=== PATIENT | male | born 2000 | race Caucasian/White ===

== ENCOUNTER 2021-01-24 19:17 | Emergency (ER) | payer MEDICAID, SELFPAY ==
--- NOTE | 2021-01-24 19:30 | NUR.NOTE ---
Pt arrives via [place] [employer] under arrest. Per police pt was in back of car and was striking head against window. Pt reported KRAUS to police. Brought to ED for eval. On arrival, pt refused to get out of car to be seen. Dr Prakash out to speak to pt, pt A&Ox3, declined evaluation. aware he is leaving AMA. encouraged to return for eval at any time.
--- NOTE | 2021-01-24 19:35 | NUR.NOTE ---
this RN did not assess pt, present for conversation between pt and MD Prakash. Noted to be A&Ox3, answering questions appropriately with clear speech.
--- NOTE | 2021-01-24 23:42 | W.ED.GENAD ---
Discharge Plan Disposition Patient Disposition: HOME Discharge Details Clinical Impression: Head injury Primary Care Provider: None,None ED Provider: Provider,Temporary Discharge Instructions Instructions: Against Medical Advice (ED) Additional Instructions: You presented with law enforcement to the emergency department. You are refusing emergency department evaluation and treatment. You understand that you may have life-threatening or lifestyle modifying disease that would go undiagnosed and untreated and that your condition may worsen. Please return to the emergency department at any time for further work-up and treatment. Please follow-up with your primary care physician as soon as possible and return to the emergency department at any time. Discharge Data Discharge Date/Time-TO BE ENTERED AT DEPARTURE: 01/24/21 19:30 Medical Decision Making 20-year-old male in law enforcement custody, here at request of law enforcement for complaint of headache after hitting his head against wall patrol car. Patient refusing to enter the emergency department and refusing ED evaluation and treatment. Patient is alert and oriented and has decisional making capacity. I had a discussion with the patient about emergency department evaluation. Patient declines ED and wishes to leave against medical advise without further examination. I reiterated my concerns to the patient and explained the risks of leaving prior to completion of workup and treatment. I specifically emphasized the possibility of life-threatening or lifestyle modifying disease that would not be appropriately treated if they leave. Patient verbalized understanding of my concerns and the potential for life threatening or lifestyle modifying disease. Patient has capacity to make informed decision. I recommended that the patient follow-up with primary care physician GUERLINE or return to the Emergency Department at any time for further treatment. HPI General Date/Time Provider Initiated Documentation: 01/24/21 19:18. Information obtained by: patient and police. HPI Narrative: 20-year-old male arrives in law enforcement custody. [employer] senior officer notes patient was banging his head and back of patrol car in route to care home. Patient reported to criminal lawyer that he had a headache. While enforcement diverted to ED for evaluation. Patient refusing evaluation. General Stated Complaint: Headache LOI: 4 Review of Systems Narrative: Patient denies pain and refuses to provide additional review of PFSH Social History Smoking risk assessment performed?: No Exam Const General: comfortable and no acute distress Orientation: alert, awake and oriented x3 HENMT Head: no raccoon eyes and No periorbital ecchymosis Eyes Pupils: other (Pupils equal and round) Resp Effort & Inspection: normal respiratory effort and able to speak in complete sentences Neuro General: patient alert, patient awake and patient oriented x3 Cognition: normal cognition Speech: speech normal
== END 2021-01-24 19:30 | disposition home or self-care (01) ==
DX: S09.8XXA Other specified injuries of head, initial encounter (principal); W22.8XXA Striking against or struck by other objects, initial encounter; Z53.29 Procedure and treatment not carried out because of patient's decision for other reasons
CPT/HCPCS: 99285; 99283

== ENCOUNTER 2024-09-08 16:00 | Emergency (ER) | payer MEDICAID, SELFPAY ==
[2024-09-08 16:04] VITALS: BP 103/51; PULSE 107; RESP 20; TEMP 36.7; O2SAT 99
--- NOTE | 2024-09-08 16:09 | ED.GENADUL_ITS ---
Discharge Plan Disposition Patient Disposition: Against Medical Advice Condition: Stable Discharge Details Clinical Impression: Observed seizure-like activity Primary Care Provider: None,None ED Provider: Angeles Benjamin Discharge Instructions Instructions: Seizures, Head Injury Observation (DC) Additional Instructions: At this time you have refused workup including blood work head CT and rib x- rays. This will be AGAINST MEDICAL ADVICE discharge. Please understand that your situation could become worse open to including disability, worsening injury or . Able to help you further or if you do not cooperate with the workup. Please follow-up with the medical providers at the facility. Follow up with primary care provider in 3-5 days. Referrals: Primary Care Provider [Outside] - 5 days Discharge Data Discharge Date/Time-TO BE ENTERED AT DEPARTURE: 09/08/24 16:54 HPI General Mode of arrival: EMS . Date/Time Provider Initiated Documentation: 09/08/24 16:06 . Information obtained by: patient, police, EMS and RN notes reviewed . HPI Na rrative: 23-year-old male presents via EMS with a chief complaint of seizure-like activity and head injury. Per police report and EMS on scene patient hit his head began having seizure-like activity and became unresponsive spitting stuff up in his lungs. Upon arrival he is nonverbal, he reports he does have a past medical history of seizure that are stress-induced. He does not currently take any medications for seizures. There is no signs of trauma noted on his head. He is complaining of some right rib pain. He presents in police custody at this time. Denies smoking drugs or alcohol. Patient is nonverbal and refusing to verbally answer my questions Does however nod his head and shake his head no. Related Data Allergies Allergy/AdvReac Type Severity Reaction Status Date / Time No Known Allergies Allergy Unverified 09/08/24 16:26 General Stated Complaint: Seizure LOI: 3 Review of Systems Narrative: History limited most history supplied by EMS. Patient is refusing to take his clothes off and is being nonverbal. Exam Narrative Exam Narrative: Constitutional: Alert and oriented x3. Appears stated age. Normal body habitus. Head: Normocephalic, no trauma. Eyes: Pupils PERRL, Red reflex noted, EOM's intact. Eyelids symmetrical without lesions, discharge, or swelling. ENT: Bilateral TM's WNL, External ear normal to inspection, no mastoid TTP, swelling, or erythema, Nasal turbinates WNL, no nasal discharge. Normal dentition, Posterior pharynx WNL, no exudate. Chest: RRR, Normal S1, S2, distal pulses intact. Resp: Lungs clear to auscultation bilaterally, no wheezes, rales, or rhonchi. Abdomen: Soft, non-distended, Normoactive bowel sounds all 4 quads. Musculoskeletal: Normal gait, Moves all 4 extremities without difficulty. Skin: No suspicious rashes or lesions. Capillary refill less than 2 sec. Neurologic: Cranial nerves II-XII intact. Alert and oriented x 3. Motor: No deficits noted. Sensory: Intact bilaterally all 4 extremities. Hematologic/Lymphatic: No ecchymosis, no lymphadenopathy. Course Vital Signs Vital signs: Vital Signs Temperature 36.7 C 09/08/24 16:04 Pulse 107 H 09/08/24 16:04 Respiratory Rate 20 09/08/24 16:04 Blood Pressure 103/51 L 09/08/24 16:04 Pulse Oximetry 99 09/08/24 16:04 Temperature 36.7 C 09/08/24 16:04 Temperature Source Oral 09/08/24 16:04 Pulse 107 H 09/08/24 16:04 Respiratory Rate 20 09/08/24 16:04 Blood Pressure 103/51 L 09/08/24 16:04 Blood Pressure Position Supine 09/08/24 16:04 Pulse Oximetry 99 09/08/24 16:04 Oxygen Delivery Method Room Air 09/08/24 16:04 Oxygen Flow Rate 0 09/08/24 16:04 Medical Decision Making 23-year-old male presents via EMS with a chief complaint of seizure-like activity and head injury. Per police report and EMS on scene patient hit his head began having seizure-like activity and became unresponsive spitting stuff up in his lungs. Upon arrival he is nonverbal, he reports he does have a past medical history of seizure that are stress-induced. He does not currently take any medications for seizures. There is no signs of trauma noted on his head. He is complaining of some right rib pain. Workup ordered including CBC CMP UDS urinalysis rib series x-ray and head CT. Informed by residential treatment staff that patient is refusing workup at this time, while correctional officers are in the room. Will re-discuss with patient. 1629: On patient reevaluation he is speaking to me now he is refusing any lab work or imaging wall facial fractures or abnormal. Officers state that this is their policy that they do need to stay in the room. He is speaking in full sentences does not appear to be under the influence at this time. No signs of trauma. As I am leaving he states you'll see me again in an hour. Will sign patient out AGAINST MEDICAL ADVICE. Patient left in the custody of correctional officers. This text was generated using [employer] dictation system, please disregard any oddities of phrase or misspellings. Quality:SDOH Health Related Social Needs: No Data to Display PFSH All Active Problems (Updated 09/08/24 @ 16:33 by Angeles Benjamin NP) Observed seizure-like activity (Acute) Head injury (Acute) Social History Smoking/Tobacco Use Status: Never Smoking risk assessment performed?: Yes Alcohol Intake: never Drug use: Never Details: pt denies any tobacco, alcohol, or drug use
== END 2024-09-08 16:54 | disposition left against medical advice (07) ==
LOC: ER 16:56
PROVIDERS: Emergency Provider Registered Nurse Emergency
DX: R56.9 Unspecified convulsions (principal); Z53.29 Procedure and treatment not carried out because of patient's decision for other reasons
CPT/HCPCS: 80053; 99285; 80320; 83735; 84443; 85025; 99284

== ENCOUNTER 2024-09-24 14:55 | Emergency (ER) | payer OTHER, SELFPAY ==
[2024-09-24] VITALS (13 sets, daily range): BP systolic 91–104; BP diastolic 51–64; PULSE 82–133; RESP 11–29; TEMP 36.4–36.6; O2SAT 88–100
[2024-09-24 15:20] LABS: Abs Immature Grans 0.15 10^3/uL (0.0-0.06); Absolute Basophil Count 0.03 10^3/uL (0.0-0.2); Absolute Eosinophil Count 0.25 10^3/uL (0.0-0.7); Absolute Lymphocyte Count 1.33 10^3/uL (1.2-3.4); Absolute Monocyte Count 0.41 10^3/uL (0.1-0.8); Absolute Neutrophil Count 4.69 10^3/uL (1.2-6.7); Basophils % 0.4 %; Eosinophils % 3.6 %; HCT 39.1 % (40.0-50.0); HGB 13.5 g/dL (13.5-17.5); Immature Grans % 2.2 %; Lymphocytes % 19.4 %; MCH 30.4 pg (27.0-33.0); MCHC 34.5 % (32.0-36.0); MCV 88 fL (80-95); MPV 9.2 fL (8.0-11.0); Neutrophils % 68.4 %; Platelet Count 289 10^3/uL (130-400); RBC 4.44 10^6/uL (4.36-5.78); RDW 12.4 % (11.8-14.1); RDW-SD 40.3 fL; WBC 6.86 10^3/uL (4.4-10.8)
[2024-09-24 15:43] LABS: ALT 22 U/L (16-63); AST 22 U/L (15-37); Albumin 4.1 g/dL (3.4-5.0); Alkaline Phosphatase 53 U/L (46-116); Anion Gap 9.1 mmol/L (3-11); BUN 15 mg/dL (7-18); Bilirubin, Total 0.44 mg/dL (0.2-1.0); CO2 27.9 mmol/L (21.0-32.0); Calcium 8.9 mg/dL (8.5-10.1); Chloride 105 mmol/L (98-107); Estimated GFR 108.46 (mL/min/1.73m2); Glucose 125 mg/dL (74-106); Potassium 4.1 mmol/L (3.5-5.1); Sodium 142 mmol/L (136-145); Total Protein 7.7 g/dL (6.4-8.2)
--- NOTE | 2024-09-24 16:00 | DI.CT_ITS ---
Exam(s) CT HEAD WO EXAM: CT HEAD WO CLINICAL HISTORY: seizure. TECHNIQUE: Imaging Protocol: Axial computed tomography images with coronal and sagittal reformatted images were created and reviewed COMPARISON: No exams were available for comparison FINDINGS: Head is tilted towards the right. There are no obvious acute skull fractures and there is no fluid i n the paranasal sinuses and mastoid air cells. No fluid in the middle ear cavities. There is no evidence of intracranial hemorrhage, mass effect, or shift of midline structures. There are no extra-axial fluid collections. The ventricles are not enlarged or shifted and there is no blo od within the ventricular system nor within the basal cisterns. No obvious abnormality in the orbits. IMPRESSION: No acute intracranial findings on this noninfused CT scan of the brain. Report called by myself to ER on 09/24/2024 at 4:25 p.m. RADIATION DOSE DELIVERED: 1,024.65mGy.cm Total DLP DATA REPOSITORY: All CT scans at this facility are submitted to the National Radiology Data Registry (NRDR) Dose Index Registry (DIR) with the [employer] (ACR). RADIATION OPTIMIZATION: All CT scans at this facility use at least one of these dose optimization te chniques: automated exposure control; mA and/or kV adjustment per patient size (includes targeted exa ms where dose is matched to clinical indication); or iterative reconstruction.
[2024-09-24] MEDS: Ondansetron 4 MG/2 ML VIAL (16:17)
--- NOTE | 2024-09-24 16:45 | ED.GENADUL_ITS ---
Discharge Plan Disposition Patient Disposition: Home Condition: Stable Discharge Details Clinical Impression: Seizure Primary Care Provider: None,None ED Provider: Khalif Prakash Home Meds and New Rx's Prescriptions: New levetiracetam [Keppra] 500 mg tablet 500 mg PO BID Qty: 60 0RF Discharge Instructions Instructions: Seizures, Adult ED Additional Instructions: Please take your medication as prescribed. No driving or operating heavy machinery until cleared by neurology. Please follow-up with a neurologist for reassessment. Call tomorrow to schedule timely follow-up appointment to be seen within the next 1 to 2 weeks. Please contact your primary care physician to arrange follow-up. Return to the ER immediately for any worsening or new concerning symptoms. Referrals: [facility] [Provider Group] HPI General Mode of arrival: EMS . Date/Time Provider Initiated Documentation: 09/24/24 15:10 . Limitations to Documentation: no limitations . Information obtained by: patient and EMS . HPI Narrative: 23-year-old male with history of seizure disorder, transported from nursing home after witnessed generalized tonic-clonic seizure. Patient had seizure activity for brief period of time lasting a few minutes. He had minima postictal confusion. Patient denies pain. Patient states he has had numerous seizures in his life. He has not taken antiepileptic regularly for over a year. He has been refusing medications and present. Patient did receive Ativan by present staff IV prior to arrival. Related Data Home Medications ?Medication ?Instructions ?Recorded ?Confirmed levetiracetam 500 mg tablet 500 mg PO BID #60 tabs 09/24/24 (Keppra) Previous Rx's ?Medication ?Instructions ?Recorded levetiracetam 500 mg tablet 500 mg PO BID #60 tabs 09/24/24 (Keppra) Allergies Allergy/AdvReac Type Severity Reaction Status Date / Time No Known Allergies Allergy Unverified 09/08/24 16:26 General Stated Complaint: Seizure LOI: 3 Review of Systems Constitutional Constitutional: Denies fever(s) and Denies headache(s) ENT Ears, Nose, Mouth, and Throat: Denies headache(s) Neurologic Neurologic: Reports as per HPI and Denies headache(s) Exam Const General: cooperative and no acute distress HENMT Head: normocephalic and atraumatic Mouth: moist mucous membranes Eyes Conjunctivae: normal conjunctivae Sclera: normal sclerae EOM: EOM intact bilaterally Neck Neck: trachea midline Resp Auscultation: clear to auscultation bilaterally, no rales, no rhonchi and no wheezes Cardio Rate: regular rate and not tachycardic Rhythm: regular rhythm GI Palpation: soft, not firm, no guarding, no masses, not rigid and nontender Skin General skin exam: no rashes or lesions noted Neuro General: patient alert, patient awake, patient oriented x3 and tone normal Cognition: normal cognition Speech: speech normal Motor: strength 5/5 throughout Sensory Exam: no sensory deficits noted Other: Left lid droop the patient notes is chronic Extrem General: no edema Psych Appearance: grossly normal Speech and Movement: speech and movement normal Course Vital Signs Vital signs: Vital Signs Pulse 113 H 09/24/24 14:56 Respiratory Rate 16 09/24/24 14:56 Blood Pressure 104/64 09/24/24 14:56 Pulse Oximetry 98 09/24/24 14:56 Temperature 36.6 C 09/24/24 16:02 Temperature Source Temporal Artery Scan 09/24/24 16:02 Pulse 106 H 09/24/24 16:02 Pulse 93 H 09/24/24 16:20 Respiratory Rate 18 09/24/24 16:20 Respiratory Effort Normal, Non-Labored 09/24/24 16:20 Blood Pressure 103/57 L 09/24/24 15:46 Blood Pressure Mean 71 09/24/24 15:46 Pulse Oximetry 94 09/24/24 16:20 Oxygen Delivery Method Room Air 09/24/24 16:02 Oxygen Flow Rate 0 09/24/24 16:02 Pain Level 10 09/24/24 16:02 Lab/Test Results Lab/Test Results: Laboratory Tests Range/Units 09/24/24 15:07 WBC (4.4-10.8) 10^3/uL 6.86 RBC (4.36-5.78) 10^6/uL 4.44 Hgb (13.5-17.5) g/dL 13.5 Hct (40.0-50.0) % 39.1 L MCV (80-95) fL 88 MCH (27.0-33.0) pg 30.4 MCHC (32.0-36.0) % 34.5 RDW (11.8-14.1) % 12.4 Plt Count (130-400) 10^3/uL 289 MPV (8.0-11.0) fL 9.2 Immature Gran % % 2.2 Neutrophils % % 68.4 Lymphocytes % % 19.4 Monocytes % % 6.0 Eosinophils % % 3.6 Basophils % % 0.4 Nucleated RBC % (0.0-0.3) % 0.0 Absolute Neutrophils (1.2-6.7) 10^3/uL 4.69 Absolute Lymphocytes (1.2-3.4) 10^3/uL 1.33 Absolute Monocytes (0.1-0.8) 10^3/uL 0.41 Absolute Eosinophils (0.0-0.7) 10^3/uL 0.25 Absolute Basophils (0.0-0.2) 10^3/uL 0.03 Sodium (136-145) mmol/L 142 Potassium (3.5-5.1) mmol/L 4.1 Chloride (98-107) mmol/L 105 Carbon Dioxide (21.0-32.0) mmol/L 27.9 Anion Gap (3-11) mmol/L 9.1 BUN (7-18) mg/dL 15 Creatinine (0.70-1.30) mg/dL 1.0 Est GFR (CKD-EPI 2020) (mL/min/1.73m2) 108.46 Glucose (74-106) mg/dL 125 H Calcium (8.5-10.1) mg/dL 8.9 Total Bilirubin (0.2-1.0) mg/dL 0.44 AST (15-37) U/L 22 ALT (16-63) U/L 22 Alkaline Phosphatase (46-116) U/L 53 Total Protein (6.4-8.2) g/dL 7.7 Albumin (3.4-5.0) g/dL 4.1 Medical Decision Making 23-year-old male with known seizure disorder, noncompliant with antiepileptics, here after witnessed generalized tonic-clonic seizure. Patient received Ativan prior to arrival. Patient is hemodynamically stable. He is now mentating well with no neurologic deficits. Patient was given Keppra 1 g IV. Patient states he has never had brain imaging in the past. CT of the brain was reviewed and interpreted by radiology: No acute intracranial findings on this not infused CT scan of the brain. Labs reviewed and nondiagnostic. I obtained outside hospital records including most recent discharge summary [place] [facility] [place] [facility] which notes patient presenting with seizure-like activity, refused diagnostic workup at that time. Patient reassessed and has remained stable. I spoke with the medical staff at nursing home and they can ensure safety and compliance with antiepileptics. I will prescribe Keppra which they have available. Lab Data Lab results reviewed: Yes I reviewed the patient's lab results. Labs: Laboratory Tests Range/Units 09/24/24 15:07 WBC (4.4-10.8) 10^3/uL 6.86 RBC (4.36-5.78) 10^6/uL 4.44 Hgb (13.5-17.5) g/dL 13.5 Hct (40.0-50.0) % 39.1 L MCV (80-95) fL 88 MCH (27.0-33.0) pg 30.4 MCHC (32.0-36.0) % 34.5 RDW (11.8-14.1) % 12.4 Plt Count (130-400) 10^3/uL 289 MPV (8.0-11.0) fL 9.2 Immature Gran % % 2.2 Neutrophils % % 68.4 Lymphocytes % % 19.4 Monocytes % % 6.0 Eosinophils % % 3.6 Basophils % % 0.4 Nucleated RBC % (0.0-0.3) % 0.0 Absolute Neutrophils (1.2-6.7) 10^3/uL 4.69 Absolute Lymphocytes (1.2-3.4) 10^3/uL 1.33 Absolute Monocytes (0.1-0.8) 10^3/uL 0.41 Absolute Eosinophils (0.0-0.7) 10^3/uL 0.25 Absolute Basophils (0.0-0.2) 10^3/uL 0.03 Sodium (136-145) mmol/L 142 Potassium (3.5-5.1) mmol/L 4.1 Chloride (98-107) mmol/L 105 Carbon Dioxide (21.0-32.0) mmol/L 27.9 Anion Gap (3-11) mmol/L 9.1 BUN (7-18) mg/dL 15 Creatinine (0.70-1.30) mg/dL 1.0 Est GFR (CKD-EPI 2020) (mL/min/1.73m2) 108.46 Glucose (74-106) mg/dL 125 H Calcium (8.5-10.1) mg/dL 8.9 Total Bilirubin (0.2-1.0) mg/dL 0.44 AST (15-37) U/L 22 ALT (16-63) U/L 22 Alkaline Phosphatase (46-116) U/L 53 Total Protein (6.4-8.2) g/dL 7.7 Albumin (3.4-5.0) g/dL 4.1 Yeah Quality:[facility] Health Related Social Needs: No Data to Display PFSH All Active Problems Seizure (Acute) Observed seizure-like activity (Acute) Head injury (Acute) Social History Smoking/Tobacco Use Status: Never Smoking risk assessment performed?: Yes Alcohol Intake: never Drug use: Never Details: pt denies any tobacco, alcohol, or drug use Housing: other
--- OUTSIDE RECORDS SUMMARY | 2024-09-24 17:17 | XMS_ITS | Clinical Summary ---
Author Organization [facility] Address [address] [place] [address] Care Team Providers Care Diesel Service Apprentice Name Role Phone Unknown, Provider Primary Care Provider Unava ilable Allergies Active Allergy Reactions Criticality Noted Date Comments Latex 11/12/2018 Medications albuterol 90 mcg/actuation inhaler Inhale 180 mcg as directed every 6 hours as needed for Wheezing. Active Encounters Date Type Department Care Team Description 07/04/2024 20:59 EDT - 07/04/2024 22:30 EDT Emergency [facility] Emergency Department [address] [place] [address] Aristides Louie MD Seizure-like activity ([facility]) (Primary Dx) Discharge Disposition: Home or Self Care 07/04/2024 Travel from Last 3 Months Medical History Medical History Date Comments Psychiatric problem Social History Tobacco Use Types Packs/Day Years Used Date Smoking Tobacco: Every Day Cigarettes 5 10 Tobacco Cessation:Ready to Q uit: No Interpersonal Safety Answer Date Record ed Physically Hurt Never 05/08/2020 Verbally Threaten Not on file 05/08/2020 Sex and Gender Information Value Date Recorded Sex Assigned at Not on file Legal Sex Male 18:28 EST Gender Identity Not on file Sexual Orientation Not on file Obstetrics History Last Filed Vital Signs Vital Sign Reading Time Taken Comments Blood Pressure 114/76 07/04/20242109 EDT Pulse 73 07/04/20242109 EDT Temperature 36.8 ??C (98.2 ??F) 07/04/20242109 EDT Respiratory Rate 20 07/04/20242109 EDT Oxygen Saturation 98% 07/04/20242109 EDT Inhaled Oxygen Concentration - - Weight 61.2 kg (135 lb) 07/04/20242109 EDT Height 167.6 cm (5' 6) 02/25/20232217 EDT Body Mass Index 21.79 02/25/2023 221 EDT Plan of Treatment Health Maintenance Due Date Last Done Comments Hepatitis C Screen 2000 Pneumococcal Immunization (1 of 2 - PCV) 2006 Hepatitis B Vaccine (1 of 3 - 19+ 3-dose series) 12/21 COVID-19 Vaccine ( season) 2024 Procedures Procedure Name Priority Date/Time Associated Diagnosis Comments POCT GLUCOSE, INTERFACED STAT 07/04/2024 22:04 EDT from Last 3 Months Results * POCT GLUCOSE, INTERFACED (07/04/2024 22:04 EDT) Glucose, POC 93 70 - 100 mg/dL 07/04/2024 22:07 EDT [facility] HN LAB POC COMMENT (GLUCOSE) Test Performed in ED 07/04/2024 22:07 EDT [facility] Blood CAPILLARY BLOOD / Unknown 07/04/2024 22:04 EDT 07/04/2024 22:07 EDT Aristides Louie MD POINT OF CARE TEST ORDER YISSEL Final Result [facility] [address] [place] [address] from Last 3 Months Insurance [place] [address] Care Teams Diesel Service Apprentice Relationship Specialty Start Date End Date Unknown, Provider, PCP - General 01/18/17
--- OUTSIDE RECORDS SUMMARY | 2024-09-24 17:18 | XMS_ITS | Encounter Summary ---
Author Organization [facility] Address [address] [place] [address] Care Team Providers Care Warp Trucker Name Role Phone Unknown, Provider Primary Care Provider Unava ilable Encounter Details Date Type Department Care Team (Latest Contact Info) Description 03/17/2022 Travel Social History Tobacco Use Types Packs/Day Years Used Date Smoking Tobacco: Every Day Cigarettes 5 10 Interpersonal Safety Answer Date Record ed Physically Hurt Never 05/08/2020 Verbally Threaten Not on file 05/08/2020 Sex and Gender Information Value Date Recorded Sex Assigned at Not on file Legal Sex Male 18:28 EST Gender Identity Not on file Sexual Orientation Not on file COVID-19 Exposure Response Date Recorded In the last 10 days, have yo u been in contact with someone who was confirmed or suspected to have Coronavirus/COVID-19? No / Unsure 03/17/2022 20:31 EDT documented as of this encounter Plan of Treatment Not on file documented as of this encounter Visit Diagnoses Not on filedocumented in this encounter Care Teams Warp Trucker Relationship Specialty Start Date End Date Unknown, Provider, PCP - General 01/18/17 documented as of this encounter
--- OUTSIDE RECORDS SUMMARY | 2024-09-24 17:18 | XMS_ITS | Encounter Summary ---
Author Organization [facility] Address [address] [place] [address] Care Team Providers Care Medical Record Librarians Teacher Name Role Phone Stevie Avendano MD Primary Care Provider Unavailable Unknown, Provider Primary Care Provider Unava ilable Encounter Details Date Type Department Care Team (Late st Contact Info) Description 03/16/2015 Historical Results Only [facility] Radiology Results [address] [place] [address] Saadia Velasco MD Social History Tobacco Use Types Packs/Day Years Used Date Smoking Tobacco: Never Assessed Sex and Gender Information Value Date Recorded Sex Assigned at Not on file Legal Sex Male 18:28 EST Gender Identity Not on file Sexual Orientation Not on file documented as of this encounter Plan of Treatment Not on file documented as of this encounter Procedures Procedure Name Priority Date/Time Associated Diagnosis Comments XR HAND RIGHT 3 OR MORE VIEWS 03/16/2015 7:20 EDT documented in this encounter Results * XR HAND RIGHT 3 OR MORE VIEWS (03/16/2015 7:20 EDT) Anatomical Region Laterality Modality Upper Extremities Right Other 03/16/2015 7:20 EDT Narrative 03/16/2015 7:25 EDT ? EXAM: RADIOLOGY/QFOF-XDIHQ-3+VIEW ? EX. D/ (2225) ? CLINICAL INFORMATION: ? PAIN S/P PUNCHING WALL ? XR RIGHT HAND ? Comparison: None. ? Indication: Punched wall ? Findings:AP, oblique and lateral views of the right hand were ? performed. Alignment is anatomic. No fracture is seen. The soft ? tissues are unremarkable. ? Impression: ? 1. No fracture right hand. ? REPORT SIGNED IN OTHER VENDOR SYSTEM 03/16/2015 ?Reported By: Ritu Menjivar MD ? CC: ? Transcribed Date/Time: 03/16/2015 (724) ? Finance Attorney: ? Printed Date/Time: 03/16/2019 (0257) ? PAGE 1 ? Signed Report ? Procedure Note Unknown, Doctor - 10/20/2019 EXAM: RADIOLOGY/HJNX-UPJXR-3+VIEW EX. D/ (2225) CLINICAL INFORMATION: PAIN S/P PUNCHING WALL XR RIGHT HAND Comparison: None. Indication: Punched wall Findings:AP, oblique and lateral views of the right hand were performed. Alignment is anatomic. No fracture is seen. The soft tissues are unremarkable. Impression: 1. No fracture right hand. REPORT SIGNED IN OTHER VENDOR SYSTEM 03/16/2015 Reported By: Ritu Menjivar MD CC: Transcribed Date/Time: 03/16/2015 (724) Finance Attorney: Printed Date/Time: 03/16/2019 (0162) PAGE 1 Signed Report us Saadia Velasco MD IMG DIAGNOSTIC IMAGING ORD ERABLES Final Result documented in this encounter Visit Diagnoses Not on filedocumented in this encounter Care Teams Medical Record Librarians Teacher Relationship Specialty Start Date End Date Stevie Avendano MD PCP - General 03/21/15 01/17/17 Unknown, Provider, PCP - General 01/18/17 documented as of this encounter
--- OUTSIDE RECORDS SUMMARY | 2024-09-24 17:18 | XMS_ITS | Encounter Summary ---
Author Organization [facility] Address [address] [place] [address] Care Team Providers Care Senior Abap Developer Name Role Phone Stevie Avendano MD Primary Care Provider Unavailable Unknown, Provider Primary Care Provider Unava ilable Encounter Details Date Type Department Care Team (Late st Contact Info) Description 03/15/2015 Historical Results Only [facility] Radiology Results [address] [place] [address] Saadia Velasco MD Social History Tobacco Use [...] XR HAND RIGHT 3 OR MORE VIEWS 03/15/2015 22:01 EDT documented in this encounter Results * XR HAND RIGHT 3 OR MORE VIEWS (03/15/2015 22:01 EDT) Anatomical Region Laterality Modality Upper Extremities Right Other 03/15/2015 22:0 1 EDT Narrative 03/16/2015 7:20 EDT ? EXAM: RADIOLOGY/ETVZ-SQJZD-4+VIEW ? EX. D/ (2225) ? CLINICAL INFORMATION: [...] CC: ? Transcribed Date/Time: 03/16/2015 (724) ? Animal Damage Control Agent: ? Printed Date/Time: 03/16/2019 (2545) ? PAGE 1 ? Signed Report ? Procedure Note Unknown, Doctor - 10/20/2019 EXAM: RADIOLOGY/VMFI-UHNAU-6+VIEW EX. D/ (2225) CLINICAL INFORMATION: PAIN S/P PUNCHING WALL XR RIGHT HAND Comparison: None. Indication: Punched wall Findings:AP, oblique and lateral views of the right hand were performed. Alignment is anatomic. No fracture is seen. The soft tissues are unremarkable. Impression: 1. No fracture right hand. REPORT SIGNED IN OTHER VENDOR SYSTEM 03/16/2015 Reported By: Ritu Menjivar MD CC: Transcribed Date/Time: 03/16/2015 (724) Animal Damage Control Agent: Printed Date/Time: 03/16/2019 (2964) PAGE 1 Signed Report us Saadia Velasco MD IMG DIAGNOSTIC IMAGING ORD ERABLES Final Result documented in this encounter Visit Diagnoses Not on filedocumented in this encounter Care Teams Senior Abap Developer Relationship Specialty Start Date End Date Stevie Avendano MD PCP - General 03/21/15 01/17/17 Unknown, Provider, PCP - General 01/18/17 documented as of this encounter
--- OUTSIDE RECORDS SUMMARY | 2024-09-24 17:18 | XMS_ITS | Encounter Summary ---
Author Organization [facility] Address [address] [place] [address] Care Team Providers Care Favor Maker Name Role Phone Unavailable Primary Care Provider Unavailabl e Encounter Details Date Type Department Care Team (Late st Contact Info) Description 09/03/2006 Before PRISM Converted Visit ([facility]) [facility] - Maple conversion [address] [place] [address] Brandi Montes MD [address] [place] [address] Social History Tobacco Use Types Packs/Day Years Used Date Smoking Tobacco: Never Assessed Sex and Gender Information Value Date Recorded Sex Assigned at Not on file Legal Sex Male 18:28 EST Gender Identity Not on file Sexual Orientation Not on file documented as of this encounter Consult Notes * Brandi Montes MD - 10/10/2009 7386 EST CONSULTATION - 09/03/2006 [facility] Tripp Painagua is a 5- year- old who was seen at the request of his pulley man, Dr. Avendano, for followup related to his underlying possible genetic diagnoses. Tripp was last seen on January 03, 2005. INTERIM HISTORY: Currently Tripp is in kindergarten, and is wearing glasses. He has problems with hyperactivity and was tried on Focalin a month ago, but it makes him sick to his stomach, and the parents have not seen a change in him. They have been discussing other possible medications with their pulley man tocurb his hyperactivity. Of note is that his sister, Kristie, also has hyperactivity and is well- controlled on medications. She is on Metadate, and at the time of this clinic the parents have been unable to have Metadate covered by insurance for Tripp. He is still having trouble with toilet training, and wears a pull- up at night and many days at school. His 7- year- old sister also wears a pull- up at night. With respect to his physical developmental delay, he still has trouble walking up stairs but is otherwise doing fairly well. He has not been seen by Dr. Woodward for his ptosis since we saw him last, and he has not been to a dentist. He has had a dental exam at school, in which they noticed fused teeth. Mother reports that they did x- rays, and that his permanent teeth did not appear to be fused. PHYSICAL EXAMINATION: Weight 36 pounds, head circumference 50.5 cm. Tripp was not at all cooperative with the exam. Again, his unilateral left- sided ptosis was noted as well as his facial and cranial asymmetry. No other abnormalities were noted on our somewhat limited exam. He would not let us look into his mouth at all. SUMMARY: Tripp continues to be somewhat of a mystery as to the genetic reasons for the difficulties he ishaving. There is still a possibility that he has a form of [place], however his only finding for that at this point is his unilateral ptosis. Therefore, it is likely that this is an isolated incident. It appears that his learning problems and hyperactivityare not out of line for his family history. Atthis time, I do not have any further genetic testing to recommend, and I do not need to see him back for at least two years. I would like to see him back in followup at that point, just to see if there is any further developments that would warrant having any additional testing done. Signed by Brandi Montes MD 09/20/2006 05:36 [facility] [phone] W [place], MD Brandi Montes MD Division of Pediatric Genetics [phone] Yisel Montes MD A - O1 Job ID: [id number] Document ID: [id number] cc: Stevie Avendano MD documented in this encounter Plan of Treatment Not on file documented as of this encounter Visit Diagnoses Not on filedocumented in this encounter
--- OUTSIDE RECORDS SUMMARY | 2024-09-24 17:18 | XMS_ITS | Encounter Summary ---
Author Organization [facility] Address [address] [place] [address] Care Team Providers Care Direct Care Staffer Name Role Phone Unknown, Provider Primary Care Provider Unava ilable Encounter Details Date Type Department Care Team (Late st Contact Info) Description 10/10/[address] [facility] Radiology Results [address] [place] [address] Yoli Marshall MD [address] [place] [address] Social History Tobacco Use Types Packs/Day Years [...] Procedure Name Priority Date/Time Associated Diagnosis Comments DRUG SCREEN, PRESCRIPTION/OTC, URINE Routine 10/10/2018 19:40 EST URINE CHEMICAL (DIP) & SEDIMENT (MICRO) WITHOUT REFLEX TO CULTURE Routine 10/10/2018 19:40 EST COMPLETE BLOOD COUNT WITH DIFFERENTIAL (AUTO) Routine 10/10/2018 18:32 EST TROPONIN I Routine 10/10/2018 18:32 EST MAGNESIUM Routine 10/10/2018 18:32 EST COMPREHENSIVE METABOLIC PANEL (CMP) Routine 10/10/2018 18:32 EST XR CHEST 2 VIEWS 10/10/2018 18:0 9 EST documented in this encounter Results * UA, CHEMICAL AND SEDIMENT ANALYSIS (DIPSTICK AND MICROSCOPIC) (10/10/2018 19:40 EST) URINE APPEARANCE - [facility] Clear CLEAR 10/10/2018 19:48 [facility] URINE BILIRUBIN - DIPSTICK - [facility] Negative NEGATIVE 10/10/2018 19:48 [facility] URINE BLOOD - [facility] Negative NEG 10/10/2018 19:48 [facility] URINE COLOR - [facility] Yellow YELLOW 10/10/2018 19:48 [facility] URINE GLUCOSE - DIPSTICK - [facility] Negative NEGATIVE 10/10/2018 19:48 [facility] URINE KETONE - [facility] 2+ NEGATIVE 10/10/2018 19:48 [facility] URINE LEUK ESTERASE - [facility] Negative NEG 10/10/2018 19:48 [facility] URINE NITRITE - DIPSTICK - [facility] Negative NEG 10/10/2018 19:48 [facility] URINE PH - [facility] 6.0 4.0 - 8.0 9 19:48 [facility] URINE PROTEIN - DIPSTICK - [facility] Negative NEG 10/10/2018 19:48 [facility] URINE SPECIFIC GRAVITY - [facility] 1.015 1.001 - 1.035 10/10/2018 19:48 [facility] URINE UROBILINOGEN - DIPSTICK - [facility] 0.2 0.2 - 1.0 10/10/2018 19:48 [facility] 10/10/2018 19:4 0 EST 10/10/2018 19:44 EST us Yoli Marshall MD URINALYSIS ORDERABLES Final Res ult [facility] * DRUG SCREEN, PRESCRIPTION/OTC, URINE (10/10/2018 19:40 EST) AMPHETAMINES NEG NEG 10/10/2018 20:00 [facility] BARBITURATES,UR - [facility] NEG NEG 10/10/2018 20:00 [facility] BENZODIAZEPINES NEG NEG 9 20:00 [facility] COCAINE,URINE - [facility] NEG NEG 01/2019 20:00 [facility] MAMP (METHAMPHETAMINES - [facility] NEG NEG 10/10/2018 20:00 [facility] MARIJUANA,URINE - [facility] NEG NEG 10/10/2018 20:00 [facility] MTD (METHADONE) - [facility] NEG NEG 10/10/2018 20:00 [facility] OPIATES,URINE - [facility] NEG NEG 01/2019 20:00 [facility] OXY (OXYCODONE) - [facility] NEG NEG 10/10/2018 20:00 [facility] PCP (PHENCYCLIDINE) - [facility] NEG NEG 10/10/2018 20:00 [facility] PROPOXYPHENE (PPX) - [facility] NEG NEG 10/10/2018 20:00 [facility] TRICYCLIC ANTIDEPRESSANTS - [facility] NEG NEG 10/10/2018 20:00 [facility] Comment: Drug Class ?Cutoff Concentration Amphetamines (AMP) ?500 ng/ml Barbiturates (BAR) ?200 ng/ml Benzodiazepines (BZO) ? 150 ng/ml Cocaine (GENO) ? 150 ng/ml Methamphetamine (mAMP) ?500 ng/ml Methadone (MTD) ? 200 ng/ml Opiates (OPI) ? 100 ng/ml Oxycodone (OXY) ? 100 ng/ml Phencyclidine (PCP) ?25 ng/ml Tetrahydrocannabinol (THC) ? 50 ng/ml Propoxyphene (PPX) ?300 ng/ml Tricyclic antidepressants (TCA) ? 300 ng/ml This is a screening assay only, intended for use in clinical monitoring or management of patients. False positive or false negative results can occur. If confirmation testing is needed, please call the lab. Specimens are retained in the laboratory for 7 days. 10/10/2018 19:4 0 EST 10/10/2018 19:44 EST Yoli Marshall MD URINALYSIS ORDERABLES Final Res ult Performing Organization Address [facility]/ZIP Co de Phone Number [facility] * MAGNESIUM (10/10/2018 18:32 EST) Magnesium 1.90 1.5 - 2.3 mg/dL 10/10/2018 19:01 [facility] 10/10/2018 18:3 2 EST 10/10/2018 18:37 EST Yoli Marshall MD CHEMISTRY & BLOOD GAS ORDERABLE S Final Result Performing Organization Address [facility]/ZIP Co de Phone Number [facility] * (ABNORMAL) COMPREHENSIVE METABOLIC PANEL (CMP) (10/10/2018 18:32 EST) Albumin % 5.2 3.7 - 5.6 g/dL 10/10/2018 19:01 [facility] ALKALINE PHOSPHATASE - [facility] 72 58 - 237 U/L 10/10/2018 19:01 [facility] BILIRUBIN TOTAL 0.8 <1.0 mg/dL 9 19:01 [facility] BUN - [facility] 13 8 - 21 mg/dL 10/10/2018 19:01 [facility] CALCIUM - [facility] 10.6 8.9 - 10.7 mg/dL 10/10/2018 19:01 [facility] Chloride 102 96 - 110 mmol/L 10/10/2018 19:01 [facility] CO2 Total 23 21 - 32 mEq/L 10/10/2018 19:01 [facility] CREATININE 0.90 0.50 - 1.00 mg/dL 10/10/2018 19:01 [facility] Anion Gap 16 0 - 18 10/10/2018 19:01 [facility] GLUCOSE - [facility] 122(H) 70 - 100 mg/dL 10/10/2018 19:01 [facility] Potassium 4.2 3.5 - 5.0 mEq/L 10/10/2018 19:01 [facility] Sodium 141 136 - 145 mEq/L 10/10/2018 19:01 [facility] TOTAL PROTEIN - [facility] 8.6 6.3 - 8.6 gm/dL 10/10/2018 19:01 [facility] SGOT/AST - [facility] 37 15 - 45 U/L 10/10/2018 19:01 [facility] SGPT/ALT - [facility] 67(H) <41 U/L 9 19:01 [facility] 10/10/2018 18:3 2 EST 10/10/2018 18:37 EST us Yoli Marshall MD CHEMISTRY & BLOOD GAS ORDERABLE S Final Result [facility] * TROPONIN I (10/10/2018 18:32 EST) Troponin I (ng/mL) <0.012 0.000 - 0.034 ng/mL 10/10/2018 19:06 [facility] Comment: Interpretation comments: ??Cutoff for a positive troponin result is set at the 99th percentile of the upper reference limit. ??Elevated troponin must always be interpreted in the context of the clinical presentation. ?Serial troponin testing 3-6 hr from baseline is favored over relying on a single troponin level. ?? The results of this assay can be falsely lowered due to the consumption of Biotin. 10/10/2018 18:3 2 EST 10/10/2018 18:37 EST us Yoli Marshall MD CHEMISTRY & BLOOD GAS ORDERABLE S Final Result [facility] * (ABNORMAL) COMPLETE BLOOD COUNT WITH DIFFERENTIAL (AUTO) (10/10/2018 18:32 EST) ABSOLUTE NEUTROPHIL COUN - [facility] 11.09(H) 1.7 - 7.0 10e3/ul 10/10/2018 18:47 [facility] BASO # - [facility] 0.02 0.0 - 0.3 10e3/uL 10/10/2018 18:47 [facility] BASO % - [facility] 0 0 - 2 % 10/10/2018 18:47 [facility] EOS # - [facility] 0.04(L) 0.05 - 0.5 10e3/uL 10/10/2018 18:47 [facility] EOS % - [facility] 0 0 - 5 % 10/10/2018 18:47 [facility] GRAN % - [facility] 86(H) 40 - 80 % 10/10/2018 18:47 [facility] HEMATOCRIT - [facility] 46.4 36.0 - 52.0 % 10/10/2018 18:47 [facility] HEMOGLOBIN - [facility] 15.9 13.7 - 17.5 g/dl 10/10/2018 18:47 [facility] IG# - [facility] 0.22(H) 0 - 0.07 10e3/uL 10/10/2018 18:47 [facility] IG% - [facility] 1.7(H) 0 - 0.9 % 10/10/2018 18:47 [facility] LYMPH # - [facility] 0.98 0.9 - 2.9 10e3/uL 10/10/2018 18:47 [facility] LYMPH% - [facility] 8(L) 20 - 40 % 10/10/2018 18:47 [facility] MEAN CORPUSCULAR HGB - [facility] 29.1 26 - 34 pg 10/10/2018 18:47 [facility] MEAN CORPUSCULAR HGB CONC - [facility] 34.3 31 - 36 g/dL 10/10/2018 18:47 [facility] MEAN CELL VOLUME - [facility] 85.0 77 - 100 fl 10/10/2018 18:47 [facility] MONO # - [facility] 0.59 0.3 - 0.9 10e3/uL 10/10/2018 18:47 [facility] MONO% - [facility] 5 0 - 12 % 10/10/2018 18:47 [facility] PLATELET COUNT 291 150 - 400 10e3/ul 10/10/2018 18:47 [facility] RED BLOOD COUNT - [facility] 5.46 4.3 - 5.7 10e6/ul 10/10/2018 18:47 [facility] RED CELL DISTRI WIDTH - [facility] 12.5 11.8 - 15.6 % 10/10/2018 18:47 [facility] WHITE BLOOD COUNT - [facility] 12.9(H) 3.5 - 10.5 10e3/ul 10/10/2018 18:47 [facility] 10/10/2018 18:3 2 EST 10/10/2018 18:37 EST us Yoli Marshall MD HEMATOLOGY & PF4 ORDERABLES Fin al Result [facility] * XR CHEST 2 VIEWS (10/10/2018 18:09 EST) Anatomical Region Laterality Modality Other 10/10/2018 18:0 9 EST Narrative 10/10/2018 18:09 EST ? EXAM: RADIOLOGY/CHEST PA ?? LAT ?EX. D/ (1733) ? CLINICAL INFORMATION: ? cp ? EXAM: ?XR Chest, 2 Views ? EXAM DATE/TIME: ?10/10/2018 4:29 PM ? CLINICAL HISTORY: ?17 years old, male; Pain; Other: Cp ? TECHNIQUE: ?XR of the chest, 2 views. ? COMPARISON: ?No relevant prior studies available. ? FINDINGS: ?Lungs: Unremarkable. No consolidation. ?Pleural space: Unremarkable. No pleural effusion. No ? pneumothorax. ?Heart/Mediastinum: Unremarkable. No cardiomegaly. ?Bones/joints: Unremarkable. ? IMPRESSION: ? No acute findings. ? REPORT SIGNED IN OTHER VENDOR SYSTEM 10/10/2018 ?Reported By: Will Louis MD ? CC: ? Transcribed Date/Time: 10/10/2018 (1809) ? Leather Goods Ii Assembler: [employer] ? Printed Date/Time: 03/29/2019 (0911) ? PAGE 1 ? Signed Report ? Procedure Note Will Louis MD - 08/13/2019 EXAM: RADIOLOGY/CHEST PA LAT EX. D/ (1733) CLINICAL INFORMATION: cp EXAM: XR Chest, 2 Views EXAM DATE/TIME: 10/10/2018 4:29 PM CLINICAL HISTORY: 17 years old, male; Pain; Other: Cp TECHNIQUE: XR of the chest, 2 views. COMPARISON: No relevant prior studies available. FINDINGS: Lungs: Unremarkable. No consolidation. Pleural space: Unremarkable. No pleural effusion. No pneumothorax. Heart/Mediastinum: Unremarkable. No cardiomegaly. Bones/joints: Unremarkable. IMPRESSION: No acute findings. REPORT SIGNED IN OTHER VENDOR SYSTEM 10/10/2018 Reported By: Will Louis MD CC: Transcribed Date/Time: 10/10/2018 (1809) Leather Goods Ii Assembler: Printed Date/Time: 03/29/2019 (0964) PAGE 1 Signed Report us Yoli Marshall MD IMG DIAGNOSTIC IMAGING ORDERABL ES Final Result documented in this encounter Visit Diagnoses Not on filedocumented in this encounter Care Teams Direct Care Staffer Relationship Specialty Start Date End Date Unknown, Provider, PCP - General 01/18/17 documented as of this encounter
--- OUTSIDE RECORDS SUMMARY | 2024-09-24 17:18 | XMS_ITS | Encounter Summary ---
Author Organization [facility] Address [address] [place] [address] Care Team Providers Care Portfolio Strategist Name Role Phone Unknown, Provider Primary Care Provider Unava ilable Encounter Details Date Type Department Care Team (Late st Contact Info) Description 06/04/2022 [facility] [address] [place] [address] Luigi Cuadra MD [address] [place] [address] Vitamin D deficiency (Primary Dx); Seizure (HCC-CMS) (HCC) (HCC-CMS) Social History Tobacco Use Types Packs/Day Years [...] on file documented as of this encounter Functional Status * Are you deaf or do you have serious difficulty hearing? Answer Date of Assessment Author Yes 03/17/2022 20:29 EDT Anders Garvey RN documented as of this encounter Plan of Treatment Not on file documented as of this encounter Procedures Procedure Name Priority Date/Time Associated Diagnosis Comments VITAMIN D (25,OH) Routine 06/04/2022 11: 58 EDT Vitamin D deficiency TSH Routine 06/04/2022 11:58 EDT Seizure (HCC-CMS) (HCC) (HCC-CMS) VALPROIC ACID LEVEL Routine 06/04/2022 1 1:58 EDT Seizure (HCC-CMS) (HCC) (HCC-CMS) COMPREHENSIVE METABOLIC PANEL (CMP) Routine 06/04/2022 11:58 EDT Seizure (HCC-CMS) (HCC) (HCC-CMS) documented in this encounter Results * (ABNORMAL) VALPROIC ACID LEVEL (06/04/2022 11:58 EDT) Valproic Acid <10(L) 50 - 100 ug/mL 06/04/2022 18:44 EDT [facility] Blood VENOUS BLOOD / Unknown Venipuncture / Unknown 06/04/2022 11:58 EDT 06/04/2022 18:05 EDT us Luigi Cuadra MD CHEMISTRY & BLOOD GAS ORDERABLES Final Result Performing Organization Address City/State/[facility] Co de Phone Number [facility] [address] [place] [address] * (ABNORMAL) COMPREHENSIVE METABOLIC PANEL (CMP) (06/04/2022 11:58 EDT) Pathologist [facility] Sodium 142 136 - 145 mmol/L 06/04/2022 18:44 EDT [facility] Potassium 4.6 3.5 - 5.0 mmol/L 06/04/2022 18:44 [facility] Chloride 105 96 - 110 mmol/L 06/04/2022 18:44 [facility] CO2 Total 25 22 - 32 mmol/L 06/04/2022 18:44 [facility] Glucose 98 70 - 100 mg/dL 06/04/2022 18:44 [facility] BUN 12 10 - 26 mg/dL 06/04/2022 18:44 [facility] Creatinine 0.79 0.66 - 1.25 mg/dL 06/04/2022 18:44 [facility] eGFR 130 >60 mL/min/1.7 3m2 06/04/2022 18:44 [facility] Total Protein 8.0 6.3 - 8.2 g/dL 06/04/2022 18:44 EDT [facility] Albumin 5.3(H) 3.4 - 4.9 g/dL 06/04/2022 18:44 [facility] Alkaline Phosphatase 44 38 - 126 U/L 06/04/2022 18:44 [facility] AST 29 15 - 46 U/L 06/04/2022 18:44 [facility] ALT 25 <50 U/L 06/04/2022 18:44 [facility] Bilirubin, Total 0.4 <1.4 mg/dL 06/04/20 18:44 [facility] Calcium 9.5 8.5 - 10.5 mg/dL 06/04/2022 18:44 [facility] Albumin/Globulin Ratio 2.0 1.0 - 2.5 06/04/2022 18:44 [facility] Anion Gap 12 5 - 14 06/04/2022 18:44 EDT [facility] Blood VENOUS BLOOD / Unknown Venipuncture / Unknown 06/04/2022 11:58 EDT 06/04/2022 18:05 EDT Luigi Cuadra MD CHEMISTRY & BLOOD GAS ORDERABLES Final Result [facility] [address] [place] [address] * TSH (06/04/2022 11:58 EDT) TSH 1.56 0.47 - 4.68 mIU/L 06/04/2022 19:14 EDT [facility] Blood VENOUS BLOOD / Unknown Venipuncture / Unknown 06/04/2022 11:58 EDT 06/04/2022 18:05 EDT Narrative [facility] - 06/04/2022 19:14 EDT The results of this assay can be falsely lowered due to the consumption of Biotin. Luigi Cuadra MD CHEMISTRY & BLOOD GAS ORDERABLES Final Result [facility] [address] [place] [address] * VITAMIN D (25,OH) (06/04/2022 11:58 EDT) 25OH Vitamin D Tot 35 30 - 100 ng/mL 06/04/2022 20:43 EDT [facility] Blood VENOUS BLOOD / Unknown Venipuncture / Unknown 06/04/2022 11:58 EDT 06/04/2022 18:05 EDT us Luigi Cuadra MD CHEMISTRY & BLOOD GAS ORDERABLES Final Result Performing Organization Address City/[facility] Co de Phone Number [facility] [address] [place] [address] documented in this encounter Visit Diagnoses Diagnosis Vitamin D deficiency- Primary Unspecified vitamin D deficiency Seizure (HCC-CMS) Other convulsions documented in this encounter Care Teams Portfolio Strategist Relationship Specialty Start Date End Date Unknown, Provider, PCP - General 01/18/17 documented as of this encounter
--- OUTSIDE RECORDS SUMMARY | 2024-09-24 17:18 | XMS_ITS | Encounter Summary ---
Author Organization [facility] Address [address] [place] [address] Care Team Providers Care Template Fitter Name Role Phone Unavailable Primary Care Provider Unavailabl e Encounter Details Date Type Department Care Team (Late st Contact Info) Description 08/13/2003 8:43 EST - 08/13/2003 11:59 EST Hospital Encounter [facility] [address] [place] [address] David Glez MD [address] [facility] [place] [address] Discharge Disposition: Auto Discharge Social History Tobacco Use Types Packs/Day Years Used Date Smoking Tobacco: Never Assessed Sex and Gender Information Value Date Recorded Sex Assigned at Not on file Legal Sex Male 18:28 EST Gender Identity Not on file Sexual Orientation Not on file documented as of this encounter Discharge Disposition Disposition Code Departure Means Destination Auto Discharge documented in this encounter Plan of Treatment Not on file documented as of this encounter Visit Diagnoses Not on filedocumented in this encounter
--- OUTSIDE RECORDS SUMMARY | 2024-09-24 17:18 | XMS_ITS | Encounter Summary ---
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 12/12/2017 11:25 EST CHEST PA ??12/12/2017 11:16 AM Clinical History/Comments: possible sewing needle ingestion in psych pt Comparison: None. Technique: Frontal view of the chest was performed. Findings: Soft tissues: ??Normal. Bones: Normal. ?? Cardiac and mediastinal contours:Normal. Lungs: Normal. ?? Pleura/diaphragms:Normal. Impression: 1. ??Normal chest x-ray. 2. ??No sewing needle is seen. Consider imaging the entire abdomen and oropharynx. I have personally reviewed the images and the above interpretation and agree with the findings. Procedure Note Paul Jean MD - 12/12/2017 CHEST PA 12/12/2017 11:16 AM Clinical History/Comments: possible sewing needle ingestion in psych pt Comparison: None. Technique: Frontal view of the chest was performed. Findings: Soft tissues: Normal. Bones: Normal. Cardiac and mediastinal contours:Normal. Lungs: Normal. Pleura/diaphragms:Normal. Impression: 1. Normal chest x-ray. 2. No sewing needle is seen. Consider imaging the entire abdomen and oropharynx. I have personally reviewed the images and the above interpretation and agree with the findings. Pepe Rehman PA-C [facility] ORDERA BLES Final Result documented in this encounter Visit Diagnoses Diagnosis Homicidal thoughts- Primary Oppositional defiant disorder Oppositional defiant disorder of childhood or adolescence documented in this encounter Administered Medications Inactive Administered Medications - up to 3 most recent administrations Medication Order MAR Action Action Date Dose Rate Site ibuprofen (MOTRIN) tablet 400 mg 400 mg, oral, NOW X1, 1 dose, On Paulette 12/12/17 at 1715, STAT Given 12/12/2017 17:17 EST 400 mg QUEtiapine (SEROQUEL) tablet 25 mg 25 mg, oral, DAILY, First dose on Sat12/13/17 at 1400, Until Discontinued, STAT Given 12/18/2017 13:58 EDT 25 mg Given 12/17/2017 14:29 EDT 25 mg Given 12/16/2017 16:12 EDT 25 mg QUEtiapine (SEROQUEL) tablet 75 mg 75 mg, oral, 2 TIMES DAILY, First dose on Paulette 12/12/17 at 2030, Until Discontinued, STAT Given 12/18/2017 19:14 EDT 75 mg Given 12/18/2017 8:22 EDT 75 mg Given 12/17/2017 21:05 EDT 75 mg documented in this encounter Active and Recently Administered Medications Times are shown in EDT. Scheduled Medication Order 12/16/2017 12/17/2017 12/18/2017 QUEtiapine (SEROQUEL) tablet 25 mg 25 mg, oral, DAILY, First dose on Sat12/13/17 at 1400, Until Discontinued, STAT 1612 (Given - Provider: Graciela Mclaughlin RN) 1429 (Given - Provider: Joanne Solomon, RN) 1358 (Given - Provider: Joanne Solomon RN) QUEtiapine (SEROQUEL) tablet 75 mg 75 mg, oral, 2 TIMES DAILY, First dose on Paulette 12/12/17 at 2030, Until Discontinued, STAT 0931 (Given - Provider: Graciela Mclaughlin RN)2033 (Given - Provider: Chey Beltrán RN) 0828 (Given - Provider: Joanne Solomon RN)2105 (Given - Provider: Chey Beltrán RN) 0822 (Given - Provider: Joanne Solomon, RN)1914 (Given - Provider: Joanne Solomon, PAOLA) documented in this encounter Orders Medications Ordered That Jose Francisco ht Not Have Been Administered Count Last Ordered Date First Ordered Date ibuprofen (MOTRIN) tablet 400 mg 1 12/13/19 18 QUEtiapine (SEROQUEL) tablet 25 mg 1 2017 QUEtiapine (SEROQUEL) tablet 50 mg 1 2017 documented in this encounter Care Teams Headlight Adjuster Relationship Specialty Start Date End Date Unknown, Provider, PCP - General 01/18/17 documented as of this encounter
--- OUTSIDE RECORDS SUMMARY | 2024-09-24 17:18 | XMS_ITS | Encounter Summary ---
Author Organization [facility] Address [address] [place] [address] Care Team Providers Care Geek Squad Autotech Name Role Phone Unknown, Provider Primary Care Provider Unava ilable Encounter Details Date Type Department Care Team (Latest Contact Info) Description 02/25/2023 Travel Social History Tobacco Use Types Packs/Day [...] suspected to have Coronavirus/COVID-19? No / Unsure 02/25/2023 22:24 EDT documented as of this encounter Functional Status * Are you deaf or do you have serious difficulty hearing? Answer Date of Assessment Author Yes 03/17/2022 20:29 EDT Anders Garvey RN documented as of this encounter Plan of Treatment Not on file documented as of this encounter Visit Diagnoses Not on filedocumented in this encounter Care Teams Ge[employer] Relationship Specialty Start Date End Date Unknown, Provider, PCP - General 01/18/17 documented as of this encounter
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
--- OUTSIDE RECORDS SUMMARY | 2024-09-24 17:18 | XMS_ITS | Encounter Summary ---
Author Organization [facility] Address [address] [place] [address] Care Team Providers Care Salesperson Burial Needs Name Role Phone Unavailable Primary Care Provider Unavailabl e Encounter Details Date Type Department Care Team (Late st Contact Info) Description 06/15/2002 Results Only [facility] conversion [address] [place] [address] Stevie Avendano MD Social History Tobacco Use Types Packs/Day [...] Procedure Name Priority Date/Time Associated Diagnosis Comments CYTOGENETICS Routine 06/15/2002 0:00 EDT documented in this encounter Results * CYTOGENETICS (06/15/2002 0:00 EDT) Pathology Report: CYTOGENETICS REPORT Reports generated via electronic interface contain original data; however they are lacking the format of the original report. Caution should be taken when reading/interpreti ng unformatted reports. Name: ? MARTA PORRAS ? Accession #: ? [id number] : ? 2000 (Age: 1) ??M ?Collect Date: ? 06/15/2002 Location: ? [facility] ? Receive Date: ? 06/16/2002 Provider: ? STEVIE AVENDANO MD Copy to: ?SHANNAN PRICE MD ? INTERPRETATION: ? Normal male karyotype ? Document reviewed and electronically signed by: ? SHANANN PRICE MD ? Report Date: ??07/01/2002 16:40 CLINICAL HISTORY: ? Developmental delay SPECIMEN: ? Peripheral Blood ?? TEST PERFORMED: ? G-banded Karyotype ?? REPORT: ? No. Cells Counted: ??22 No. Cells Analyzed: ??13 No. Cells Karyotyped: ??7 Band Resolution: ??550 KARYOTYPE: ? 46,XY ?? COMMENT: ?I have personally reviewed the case materials including karyotypes. Shannan Price MD ?? End of Report [facility] 06/15/2002 06/16/2002 11: 57 EDT us Stevie Avendano MD PATHOLOGY ORDERABLES Fi nal Result [facility] [address] [place] [address] documented in this encounter Visit Diagnoses Not on filedocumented in this encounter
--- OUTSIDE RECORDS SUMMARY | 2024-09-24 17:18 | XMS_ITS | Encounter Summary ---
Author Organization [facility] Address [address] [place] [address] Care Team Providers Care Agriculture Science Teacher Name Role Phone Unknown, Provider Primary Care Provider Unava ilable Encounter Details Date Type Department Care Team (Latest Contact Info) Description 07/04/2024 Travel Social History Tobacco Use Types Packs/Day [...] Date of Assessment Author Yes 03/17/2022 20:29 Anders Castro RN documented as of this encounter Plan of Treatment Not on file documented as of this encounter Visit Diagnoses Not on filedocumented in this encounter Care Teams Agriculture Science Teacher Relationship Specialty Start Date End Date Unknown, Provider, PCP - General 01/18/17 documented as of this encounter
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
--- OUTSIDE RECORDS SUMMARY | 2024-09-24 17:18 | XMS_ITS | Encounter Summary ---
Author Organization [facility] Address [address] [place] [address] Care Team Providers Care Gluing Machine Adjuster Name Role Phone Unavailable Primary Care Provider Unavailabl e Encounter Details Date Type Department Care Team (Late st Contact Info) Description 03/21/2004 14:11 EDT Hospital Encounter [facility] [address] [place] [address] Saadia Gonzalez MD Social History Tobacco Use Types Packs/Day [...] 22:24 EDT documented as of this encounter Plan of Treatment Not on file documented as of this encounter Visit Diagnoses Not on filedocumented in this encounter
--- OUTSIDE RECORDS SUMMARY | 2024-09-24 17:18 | XMS_ITS | Encounter Summary ---
Author Organization [facility] Address [address] [place] [address] Care Team Providers Care Fuel Retrofitting Technician Name Role Phone Unknown, Provider Primary Care Provider Unava ilable Encounter Details Date Type Department Care Team (Latest Contact Info) Description 10/10/2018 9:54 EST - 10/10/2018 23:59 EST Hospital Encounter [facility] [address] [place] [address] Unknown, Provider, Discharge Disposition: Home or Self Care Social History Tobacco Use Types Packs/Day Years Used Date Smoking Tobacco: Never Assessed Sex and Gender Information Value Date Recorded Sex Assigned at Not on file Legal Sex Male 18:28 EST Gender Identity Not on file Sexual Orientation Not on file documented as of this encounter Medications at Time of Discharge albuterol 90 mcg/actuation inhaler Inhale 180 mcg as directed every 6 hours as needed for Wheezing. lamoTRIgine (LAMICTAL) 100 mg tablet Take 100 mg by mouth daily. 11/12/2018 QUEtiapine (SEROQUEL) 100 mg tablet Take 100 mg by mouth 2 times daily. 11/12/2018 documented as of this encounter Discharge Disposition Disposition Code Departure Means Destination Home or Self [facility] documented in this encounter Plan of Treatment Not on file documented as of this encounter Visit Diagnoses Not on filedocumented in this encounter Care Teams Fuel Retrofitting Technician Relationship Specialty Start Date End Date Unknown, Provider, PCP - General 01/18/17 documented as of this encounter
--- OUTSIDE RECORDS SUMMARY | 2024-09-24 17:18 | XMS_ITS | Encounter Summary ---
Author Organization [facility] Address [address] [place] [address] Care Team Providers Care Instruction Librarian Name Role Phone Unknown, Provider Primary Care Provider Unava ilable Encounter Details Date Type Department Care Team (Latest Contact Info) Description 06/04/2022 18:05 EDT - 06/04/2022 23:59 EDT Hospital Encounter [facility] [place] [address] [place] [address] Drink Waiter, [facility] Discharge Disposition: Home or Self Care Social [...] Garvey RN documented as of this encounter Medications at Time of Discharge albuterol 90 mcg/actuation inhaler Inhale 180 mcg as directed every 6 hours as needed for Wheezing. documented as of this encounter Discharge Disposition Disposition Code Departure Means Destination Home or Self Care documented in this encounter Plan of Treatment Not on file documented as of this encounter Visit Diagnoses Not on filedocumented in this encounter Care Teams Instruction Librarian Relationship Specialty Start Date End Date Unknown, ProviderMD PCP - General 01/18/17 documented as of this encounter
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
--- OUTSIDE RECORDS SUMMARY | 2024-09-24 17:18 | XMS_ITS | Referral Summary ---
Author Organization [facility] Address [address] [place] [address] Care Team Providers Care Corporate Specialist Name Role Phone Unknown, Provider Primary Care Provider Unava ilable Encounters Date Type Department Care Team Description 07/04/2024 Travel 07/04/2024 20:59 EDT - 07/04/2024 22:30 EDT Emergency [facility] Emergency Department [address] [place] [address] Aristides Louie MD Seizure-like activity ([facility]) (Primary Dx) Discharge Disposition: Home or Self Care from Last 3 Months Allergies Active Allergy Reactions Criticality Noted Date Comments Latex 11/12/2018 Medications albuterol 90 mcg/actuation inhaler Inhale 180 mcg as directed every 6 hours as needed for Wheezing. Active Social History Tobacco Use Types Packs/Day Years [...] on file Sexual Orientation Not on file Last Filed Vital Signs Vital Sign Reading Time Taken Comments Blood Pressure 114/76 07/04/20242109 EDT Pulse 73 07/04/20242109 EDT Temperature 36.8 ??C (98.2 ??F) 07/04/20242109 EDT Respiratory Rate 20 07/04/20242109 EDT Oxygen Saturation 98% 07/04/20242109 EDT Inhaled Oxygen Concentration - - Weight 61.2 kg (135 lb) 07/04/20242109 EDT Height 167.6 cm (5' 6) 02/25/20232217 EDT Body Mass Index 21.79 02/25/20232217 EDT Functional Status * Are you deaf or do you have serious difficulty hearing? Answer Date of Assessment Author No 07/04/2024 21:07 EDT Taras Mg, RN Plan of Treatment Not on file Procedures Procedure Name Priority Date/Time Associated Diagnosis Comments POCT GLUCOSE, INTERFACED STAT 07/04/2024 22:04 EDT from Last 3 Months Results * POCT GLUCOSE, INTERFACED (07/04/2024 22:04 EDT) Glucose, POC 93 70 - 100 mg/dL 07/04/2024 22:07 EDT [facility] HN LAB POC COMMENT (GLUCOSE) Test Performed in ED 07/04/2024 22:07 EDT [facility] Blood CAPILLARY BLOOD / Unknown 07/04/2024 22:04 EDT 07/04/2024 22:07 EDT us Aristides Louie MD POINT OF CARE TEST ORDER YISSEL Final Result [facility] [address] [place] [address] from Last 3 Months Insurance [place] Care Teams Corporate Specialist Relationship Specialty Start Date End Date Unknown, Provider, PCP - General 01/18/17
--- OUTSIDE RECORDS SUMMARY | 2024-09-24 17:18 | XMS_ITS | Encounter Summary ---
Author Organization [facility] Address [address] [place] [address] Care Team Providers Care Plasterer Stucco Name Role Phone Unknown, Provider Primary Care Provider Unava ilable Encounter Details Date Type Department Care Team (Latest Contact Info) Description 05/31/2022 Transcribe Orders [facility] Admitting [address] [place], [place] [address] Luigi Cuadra MD [address] [place] [phone] Unspecified convulsions (HCC-CMS) (HCC) (HCC-CMS) (Primary Dx) Social History Tobacco Use Types Packs/Day Years [...] as of this encounter Visit Diagnoses Diagnosis Unspecified convulsions (HCC-CMS)- Primary documented in this encounter Care Teams Plasterer Stucco Relationship Specialty Start Date End Date Unknown, Provider, PCP - General 01/18/17 documented as of this encounter
--- OUTSIDE RECORDS SUMMARY | 2024-09-24 17:18 | XMS_ITS | Encounter Summary ---
Author Organization [facility] Address [address] [place] [address] Care Team Providers Care Activity Coordinator Name Role Phone Unavailable Primary Care Provider Unavailabl e Encounter Details Date Type Department Care Team (Latest Contact Info) Description 03/15/2015 13:26 EDT - 03/15/2015 23:59 EDT Hospital Encounter [facility] [address] [place] [address] Unknown, Provider, MD Discharge Disposition: Home or Self Care Social History Tobacco Use Types Packs/Day Years Used Date Smoking Tobacco: Never Assessed Sex and Gender Information Value Date Recorded Sex Assigned at Not on file Legal Sex Male 18:28 EST Gender Identity Not on file Sexual Orientation Not on file documented as of this encounter Discharge Disposition Disposition Code Departure Means Destination Home or Self Skilled Nursing documented in this encounter Plan of Treatment Not on file documented as of this encounter Visit Diagnoses Not on filedocumented in this encounter
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
== END 2024-09-24 17:09 | disposition home or self-care (01) ==
LOC: ER 17:15
PROVIDERS: Emergency Provider Student in an Organized Health Care Education/Training Program
DX: G40.409 Other generalized epilepsy and epileptic syndromes, not intractable, without status epilepticus (principal); T42.6X6A Underdosing of other antiepileptic and sedative-hypnotic drugs, initial encounter; Z91.128 Patient's intentional underdosing of medication regimen for other reason; Y92.143 Cell of prison as the place of occurrence of the external cause
CPT/HCPCS: 36415; 80053; 99284; 70450; 85025; J2405

== ENCOUNTER 2024-09-25 19:05 | Emergency (ER) | payer OTHER, SELFPAY ==
[2024-09-25] VITALS (8 sets, daily range): BP systolic 99–111; BP diastolic 58–72; PULSE 81–125; RESP 12–25; TEMP 36.5; O2SAT 100
--- NOTE | 2024-09-25 19:00 | RT.EKG_ITS ---
APPROVED REPORT Exam: Resting ECG Reason for Exam: Seizure? Patient Location: E HR:87 bpm ECG Measurements Heart Rate 87 AXIS OK 143 P 75 QRSd 86 QRS 84 QT 365 T 67 QTc 431 Conclusion Sinus rhythm...normal P axis, V-rate 60- 99 Atrial premature complex...SV complex w/ short R-R interval ST elev, probable normal early repol pattern...ST elevation, age<55
--- NOTE | 2024-09-25 19:15 | DI.CT_ITS ---
Exam(s) CT ABDOMEN PELVIS W EXAM: CT ABDOMEN PELVIS W CLINICAL HISTORY: mid and upper abdomen pain TECHNIQUE: Imaging Protocol: Axial computed tomography images with coronal and sagittal reformatted images were created and reviewed. CONTRAST MATERIAL: Intravenous: Omnipaque 350 Contrast volume:75 mL Oral: No COMPARISON: No exams were available for comparison FINDINGS: The examination is limited due to patient motion artifact. ABDOMEN: Lung Bases: There is mild atelectasis in the right lung base. Liver: Normal density. No measurable mass. Portal, Superior Mesenteric, and Splenic Veins: Unremarkable. Gallbladder and Biliary Tract: No radiodense calculus or dilation. Pancreas: Normal density, no abnormal calcifications or inflammatory process. Spleen: Normal. Adrenals: No masses seen. Kidneys: Normal size, contour and axis. No radiodense stones or obstructive uropathy. No masses seen. Abdominal Aorta: Abdominal portion non-dilated. Bowel: No obstruction or bowel wall thickening. No evidence of appendicitis. Peritoneal Cavity: No ascites, collection or mesenteric inflammatory response. No free air. Lymph Nodes: Within normal limits. Bones: Within normal limits for the patient's age. Soft Tissues: Unremarkable. PELVIS: Bladder: Symmetric distention, no gross wall thickening. Reproductive Organs: Unremarkable as visualized. Lymph Nodes: Within normal limits. Bones: Within normal limits for the patient's age. IMPRESSION: No acute abdominal or pelvic process. RADIATION DOSE DELIVERED: 196.68mGy.cm Total DLP DATA REPOSITORY: All CT scans at this facility are submitted to the National Radiology Data Registry (NRDR) Dose Index Registry (DIR) with the [employer] (ACR). RADIATION OPTIMIZATION: All CT scans at this facility use at least one of these dose optimization te chniques: automated exposure control; mA and/or kV adjustment per patient size (includes targeted exa ms where dose is matched to clinical indication); or iterative reconstruction.
--- NOTE | 2024-09-25 19:18 | ED.GENADUL_ITS ---
Discharge Plan Disposition [facility] Disposition[facility] Condition: Stable Discharge Details Clinical Impression: Seizure-like activity, Abdominal pain Primary Care Provider: None,None ED Provider: Reggie Aguilar Home Meds and New Rx's Prescriptions: Continued levetiracetam [Keppra] 500 mg tablet 500 mg PO BID Qty: 60 0RF divalproex [Depakote] 250 mg tablet,delayed release (DR/EC) 250 mg PO BID melatonin 3 mg capsule 3 mg PO DAILY Discharge Instructions Additional Instructions: Your imaging and lab work did not show any concerning findings at this time You will continue to have seizure-like activity if you do not take your seizure meds If you feel more ill or feel you are suffering from emergent medical process return to the emergency department for reevaluation HPI General Mode of arrival: EMS . Date/Time Provider Initiated Documentation: 09/25/24 19:11 . Information obtained by: patient and EMS . History of Present Illness 23 year old M presents to the emergency department with the chief complaint of seizure like activity, described as moderate, Patient started experiencing this hour(s) (1) and it has been now resolved. No relieving factors improve symptom(s), No exacerbating factors reported . Patient notes nausea/vomiting; denies chest pain and fever/chills. Patient did receive the following treatments prior to arrival, none Related Data Home Medications ?Medication ?Instructions ?Recorded ?Confirmed levetiracetam 500 mg tablet 500 mg PO BID #60 tabs 09/24/24 09/25/24 (Keppra) divalproex 250 mg tablet,delayed 250 mg PO BID 09/25/24 09/25/24 release (Depakote) melatonin 3 mg capsule 3 mg PO DAILY 09/25/24 09/25/24 Previous Rx's ?Medication ?Instructions ?Recorded levetiracetam 500 mg tablet 500 mg PO BID #60 tabs 09/24/24 (Keppra) Allergies Allergy/AdvReac Type Severity Reaction Status Date / Time No Known Allergies Allergy Verified 09/25/24 19:20 General Stated Complaint: Seizure LOI: 3 Review of Systems All systems reviewed & are unremarkable except as noted in HPI and below Constitutional Constitutional: Denies chills, Denies fever(s) and Denies weakness Cardiovascular Cardiovascular: Denies chest pain and Denies dyspnea Respiratory Respiratory: Denies cough and Denies dyspnea Gastrointestinal Gastrointestinal: Reports abdominal pain, Reports nausea and Reports vomiting Musculoskeletal Musculoskeletal: Denies joint swelling Neurologic Neurologic: Reports convulsions and Denies weakness Course Vital Signs Vital signs: Vital Signs Temperature 36.5 C 09/25/24 19:06 Pulse 102 H 09/25/24 19:06 Respiratory Rate 19 09/25/24 19:06 Blood Pressure 99/58 L 09/25/24 19:06 Pulse Oximetry 100 09/25/24 19:06 Temperature 36.5 C 09/25/24 19:06 Temperature Source Temporal Artery Scan 09/25/24 19:06 Pulse 102 H 09/25/24 19:06 Respiratory Rate 19 09/25/24 19:06 Respiratory Effort Normal 09/25/24 19:09 Respiratory Depth Normal 09/25/24 19:09 Respiratory Pattern Normal 09/25/24 19:09 Blood Pressure 99/58 L 09/25/24 19:06 Pulse Oximetry 100 09/25/24 19:06 Oxygen Delivery Method Room Air 09/25/24 19:06 Oxygen Flow Rate 0 09/25/24 19:06 Pain Level 0 09/25/24 19:06 Medical Decision Making 23-year-old male with reported seizure history who is incarcerated and was seen yesterday for seizures and had negative labs and CT head which was unremarkable, comes in with reported seizure-like activity with full body shaking lasting 5 to 10 minutes, no seizures with EMS. Patient is lying in bed, he is groaning and when asked where he is having pain he points to his stomach. He withdraws all extremities to painful stimuli. There is no signs of trauma to the head, the abdomen is soft and nondistended and he has grown line placed on the mid to upper abdomen. He shakes his head no when asked if you have any chest pain or difficulty breathing. Unclear if he is having true seizures or not but has not been taking his Keppra even at the half-way so we will give a loading dose IV while he is here, will give a dose of droperidol for his abdominal pain and nausea and obtain CBC, CMP and CT abdomen pelvis along with lipase. Given he had a CT head that was negative yesterday do not feel repeat CT head imaging indicated. Labs and imaging without significant acute findings, patient is stable and has not had any repeat seizures and no longer has any abdominal tenderness on exam. I advised that he needs to take his seizure meds or he will likely still have episodes like he had earlier. He is stable for discharge and will follow-up with [facility] Differential Diagnosis Differential Diagnosis: Nonepileptic seizure-like activity, seizure disorder, bowel obstruction ECG Data Attestation: I personally reviewed and interpreted this ECG (s) as follows: Prior ECG tracings: not available for review Interpretation: Sinus rhythm, rate of 87, ND 143, no STEMI Quality:SDOH Health Related Social Needs: No Data to Display PFSH All Active Problems (Updated 09/25/24 @ 21:21 by Reggie Aguilar MD) Abdominal pain (Acute) Seizure-like activity (Acute) Seizure (Acute) Observed seizure-like activity (Acute) Head injury (Acute) Social History Smoking/Tobacco Use Status: Never Smoking risk assessment performed?: Yes Alcohol Intake: never Drug use: Never Details: pt denies any tobacco, alcohol, or drug use Housing: other
[2024-09-25 19:27] LABS: Abs Immature Grans 0.14 10^3/uL (0.0-0.06); Absolute Basophil Count 0.05 10^3/uL (0.0-0.2); Absolute Eosinophil Count 0.14 10^3/uL (0.0-0.7); Absolute Lymphocyte Count 2.04 10^3/uL (1.2-3.4); Absolute Monocyte Count 0.43 10^3/uL (0.1-0.8); Absolute Neutrophil Count 5.72 10^3/uL (1.2-6.7); Basophils % 0.6 %; Eosinophils % 1.6 %; HCT 45.2 % (40.0-50.0); HGB 14.9 g/dL (13.5-17.5); Immature Grans % 1.6 %; Lymphocytes % 23.9 %; MCH 29.6 pg (27.0-33.0); MCV 90 fL (80-95); MPV 8.8 fL (8.0-11.0); Neutrophils % 67.3 %; Platelet Count 309 10^3/uL (130-400); RBC 5.04 10^6/uL (4.36-5.78); RDW 12.4 % (11.8-14.1); RDW-SD 40.8 fL; WBC 8.52 10^3/uL (4.4-10.8)
[2024-09-25] MEDS: levETIRAcetam 2,000 MG in Normal Saline 100 ML 400 MG IVPB (19:31)
[2024-09-25] MEDS: Droperidol 5 MG/2 ML VIAL 2.5 MG IVP (19:32)
[2024-09-25] MEDS: Omnipaque 350 MG/ML 100 ML BTL IJ (19:51)
[2024-09-25] MEDS: Normal Saline - Diluent 50 ML VIAL IJ (19:51)
[2024-09-25 20:13] LABS: ALT 25 U/L (16-63); AST 24 U/L (15-37); Albumin 4.5 g/dL (3.4-5.0); Alkaline Phosphatase 61 U/L (46-116); Anion Gap 10.9 mmol/L (3-11); BUN 16 mg/dL (7-18); Bilirubin, Total 1.38 mg/dL (0.2-1.0); CO2 27.1 mmol/L (21.0-32.0); CREATININE 1.3 mg/dL (0.70-1.30); Chloride 104 mmol/L (98-107); Estimated GFR 79.16 (mL/min/1.73m2); Glucose 95 mg/dL (74-106); Lipase 33 U/L (<78); Sodium 142 mmol/L (136-145); Total Protein 8.3 g/dL (6.4-8.2)
[2024-09-25 20:17] LABS: Calcium 9.7 mg/dL (8.5-10.1)
[2024-09-25] MEDS: Normal Saline 1,000 ML 1000 ML IV (20:20)
--- NOTE | 2024-09-25 21:10 | DI.VRAD_ITS ---
PROCEDURE INFORMATION: Exam: CT Abdomen And Pelvis With Contrast Exam date and time: 09/25/2024 7:50 PM Age: 23 years old Clinical indication: Other: Mid and upper abdomen pain TECHNIQUE: Imaging protocol: Computed tomography of the abdomen and pelvis with contrast. Contrast material: OMNI 350; Contrast volume: 75 ml; Contrast route: INTRAVENOUS (IV); COMPARISON: No relevant prior studies available. FINDINGS: Lungs: Bibasilar atelectasis, [id number]. Liver: The liver is unremarkable. Gallbladder and biliary ducts: No gallstones. Nondistended. No wall thickening. Pancreas: The pancreas is unremarkable. Spleen: No splenomegaly. No lesions. Adrenal glands: The adrenal glands are unremarkable. Kidneys and ureters: The kidneys are normal. Stomach and bowel: The stomach is markedly distended fluid and air. No evidence of bowel obstruction. No pericolonic inflammatory stranding. Moderate stool throughout the colon and rectum. Appendix: Normal appendix. Intraperitoneal space: Unremarkable. No free air. No significant fluid collection. Vasculature: Patent vessels without evidence of aneurysm, dissection, occlusion or critical stenosis. Lymph nodes: No mesentery adenopathy. No edema. Urinary bladder: No focal wall thickening of the urinary bladder. Reproductive: Unremarkable as visualized. Bones/joints: No acute osseous abnormality. Soft tissues: Soft tissues are unremarkable as visualized. IMPRESSION: No acute process. Dictated and Authenticated by: Tiara Lozano MD. Ordering:JAKE Paredes MD
== END 2024-09-25 21:34 ==
PROVIDERS: Emergency Provider Emergency Medicine
DX: G40.909 Epilepsy, unspecified, not intractable, without status epilepticus
CPT/HCPCS: 80053; 82962; 83690; 93005; 96365; 96375; 99285; 74177; 85025; 93010; 99284; J1790; J1953; J3490

== ENCOUNTER 2025-04-27 17:31 | Emergency (ER) | payer OTHER, SELFPAY ==
--- NOTE | 2025-04-27 17:39 | W.ED.GENAD ---
Discharge Plan Disposition Patient Disposition: [facility] Condition: Good Discharge Details Clinical Impression: Encounter for medical assessment Primary Care Provider: None,None ED Provider: Provider,Temporary Home Meds and New Rx's Prescriptions: Continued levetiracetam [Keppra] 500 mg tablet 500 mg PO BID Qty: 60 0RF divalproex [Depakote] 250 mg tablet,delayed release (DR/EC) 250 mg PO BID melatonin 3 mg capsule 3 mg PO DAILY Discharge Instructions Additional Instructions: Return to the emergency department if you develop any medical concerns. HPI General Date/Time Provider Initiated Documentation: 04/27/25 17:38. Limitations to Documentation: other (pt refusal). Information obtained by: patient. HPI Narrative: 24yo M presenting in [facility] custody for medical evaluation. Patient denies medical complaints, refuses vital signs or further evaluation. Related Data Home Medications ?Medication ?Instructions ?Recorded ?Confirmed levetiracetam 500 mg tablet 500 mg PO BID #60 tabs 09/24/24 09/25/24 (Keppra) divalproex 250 mg tablet,delayed 250 mg PO BID 09/25/24 09/25/24 release (Depakote) melatonin 3 mg capsule 3 mg PO DAILY 09/25/24 09/25/24 Previous Rx's ?Medication ?Instructions ?Recorded levetiracetam 500 mg tablet 500 mg PO BID #60 tabs 09/24/24 (Keppra) Allergies Allergy/AdvReac Type Severity Reaction Status Date / Time No Known Allergies Allergy Verified 09/25/24 19:20 General Stated Complaint: Recheck LOI: 4 Exam Narrative Exam Narrative: General: Alert, well appearing, well nourished, in no acute distress. Head: Normocephalic, atraumatic Neck: Trachea midline, ?Neck supple. Cardiac: ?No cyanosis. Resp: No respiratory distress. Speaking in full sentences. Abd: ?Non-distended, Neurologic: Alert. Moves all extremities freely against gravity Medical Decision Making 24yo M presenting in [facility] custody for medical evaluation. Patient denies medical complaints, refuses vital signs or further evaluation, will not answer further questions. Discharged. [facility] All Active Problems (Updated 04/27/25 @ 17:39 by Leah Seth MD) Encounter for medical assessment (Acute) Head injury (Acute) Social History Smoking/Tobacco Use Status: Never Smoking risk assessment performed?: Yes Alcohol Intake: never Drug use: Never Details: pt denies any tobacco, alcohol, or drug use Housing: other
== END 2025-04-27 17:48 ==
LOC: ER 17:54
PROVIDERS: Emergency Provider Student in an Organized Health Care Education/Training Program
DX: Z00.8 Encounter for other general examination (principal)
CPT/HCPCS: 99281; 99285

== ENCOUNTER 2025-04-27 19:36 | Emergency (ER) | payer OTHER, SELFPAY ==
--- NOTE | 2025-04-27 19:40 | W.ED.GENAD ---
Discharge Plan Disposition Patient Disposition: Against Medical Advice Condition: Fair Discharge Details Clinical Impression: Head injury Primary Care Provider: None,None ED Provider: Leah Seth Home Meds and New Rx's Prescriptions: Continued levetiracetam [Keppra] 500 mg tablet 500 mg PO BID Qty: 60 0RF divalproex [Depakote] 250 mg tablet,delayed release (DR/EC) 250 mg PO BID melatonin 3 mg capsule 3 mg PO DAILY Discharge Instructions Instructions: Head injury in adults Additional Instructions: You have refused medical assessment. Without examining you I can not tell if you have a serious head injury. An untreated head injury can lead to permanent disability or . If you change your mind and are willing to be examined, please return to the emergency department for evaluation. Please also return if you develop new or worsening symptoms including vomiting, numbness, weakness, or if you have any other concerns. HPI General Date/Time Provider Initiated Documentation: 04/27/25 19:37. Information obtained by: patient and police. HPI Narrative: 24yo M presenting in [facility] custody for head injury. Seen in this ED at 1730 today upon his initial arrest for medical clearance; at that time refused evaluation and was discharged. Upon leaving the department at that time, told nurse see you again in an hour, asshole. Presents to this ED two hours later; [facility] report that he had an episode of whole body 'flailing' during which he was awake, alert, and responsive, speaking to them. He did strike his head on the floor several times. No LOC. No vomiting. Patient again refuses evaluation here. Related Data Home Medications ?Medication ?Instructions ?Recorded ?Confirmed levetiracetam 500 mg tablet 500 mg PO BID #60 tabs 09/24/24 09/25/24 (Keppra) divalproex 250 mg tablet,delayed 250 mg PO BID 09/25/24 09/25/24 release (Depakote) melatonin 3 mg capsule 3 mg PO DAILY 09/25/24 09/25/24 Previous Rx's ?Medication ?Instructions ?Recorded levetiracetam 500 mg tablet 500 mg PO BID #60 tabs 09/24/24 (Keppra) Allergies Allergy/AdvReac Type Severity Reaction Status Date / Time No Known Allergies Allergy Verified 09/25/24 19:20 General LOI: 4 Review of Systems Narrative: see HPI Exam Narrative Exam Narrative: General: Alert, well appearing, well nourished, in no acute distress. Head: Normocephalic, atraumatic (limited exam, patient will not allow palpation or moving of hair) Neck: Trachea midline, ?Neck supple. Cardiac: ?No cyanosis. Resp: No respiratory distress. Speaking in full sentences. Abd: ?Non-distended, Neurologic: Alert. PERRL. Moves all extremities freely against gravity Medical Decision Making 24yo M presenting in [facility] custody for head injury. Seen in this ED at 1730 today upon his initial arrest for medical clearance; at that time refused evaluation and was discharged and upon leaving the department told nurse see you again in an hour, asshole. Presents to this ED two hours later; [facility] report that he had an episode of whole body 'flailing' during which he was awake, alert, and responsive, speaking to them. He did strike his head on the floor several times. No LOC. No vomiting. Patient again refuses evaluation here including vital signs and will not participate in full neuro exam. He is awake and alert. He does have a history of seizures however the description of this event is not consistent with a generalized seizure. I recommended that he allow an evaluation specifically a full neuro exam and examination of his head, neck, and tympanic membranes; he refused. I indicated to him that untreated serious head injuries could lead to and he again refused, stating I'd rather than have you touch me. My limited exam shows no significant injuries and his demeanor here is identical to two hours prior before this event occurred. He demonstrates decision making capacity and I have no indication to sedate him or examine him against his will. Discharged against medical advice; he was encouraged to return should he develop symptoms or change his mind. PFSH All Active Problems (Updated 04/27/25 @ 19:41 by Leah Seth MD) Encounter for medical assessment (Acute) Head injury (Acute) Social History Smoking/Tobacco Use Status: Never Smoking risk assessment performed?: Yes Alcohol Intake: never Drug use: Never Details: pt denies any tobacco, alcohol, or drug use Housing: other
== END 2025-04-27 19:44 | disposition left against medical advice (07) ==
LOC: ER 20:22
PROVIDERS: Emergency Provider Student in an Organized Health Care Education/Training Program
DX: S09.8XXA Other specified injuries of head, initial encounter (principal); X58.XXXA Exposure to other specified factors, initial encounter; Y92.148 Other place in prison as the place of occurrence of the external cause
CPT/HCPCS: 99281; 99285